=== PATIENT | male | born 1935 | race Caucasian/White ===

== ENCOUNTER → 2023-12-28 09:03 | Outpatient (CLI) | payer OTHER, SELFPAY ==
--- NOTE | 2023-12-28 09:05 | DI.RAD.S_ITS ---
PROCEDURE: XR SHOULDER LT MIN 2V INDICATIONS: Left shoulder pain TECHNIQUE: 3 views of the shoulder were acquired. COMPARISON: [facility], , SHOULDER MINIMUM 2VIEW RIGHT, 08/12/2009, 11:30. FINDINGS: Bones: No fractures or dislocations. No suspicious bony lesions. Visualized ribs appear intact. Glenohumeral joint space narrowing. No remodeling. Left-sided pacemaker Soft tissues: No suspicious soft tissue calcifications. IMPRESSION: Mild glenohumeral osteoarthritis Approved by: Mamadou Peguero M.D. on 12/28/2023 at 17:05
== END ==
PROVIDERS: Family Provider Internal Medicine; PCP Internal Medicine; Referring Provider Nurse Practitioner Family; Visit Provider Nurse Practitioner Family
DX: M19.012 Primary osteoarthritis, left shoulder (principal); M25.512 Pain in left shoulder
CPT/HCPCS: 73030